=== PATIENT | female | born 1980 | race Caucasian/White ===

== ENCOUNTER → 2017-01-08 | Outpatient (CLI) | payer OTHER ==
--- NOTE | 2017-01-08 10:50 | RAD ---
EXAM: Chest, 2 views. HISTORY: Productive cough. COMPARISON: None. FINDINGS: Frontal and lateral views of the chest are obtained. There is no infiltrate, effusion or pneumothorax. The heart is normal in size. IMPRESSION: No acute pulmonary finding.
== END | disposition home or self-care (01) ==
LOC: DXRADRC 10:38
PROVIDERS: ATTEND Nurse Practitioner Family
DX: J11.1 Influenza due to unidentified influenza virus with other respiratory manifestations (principal); R05 Cough; R50.9 Fever, unspecified; R53.83 Other fatigue
CPT/HCPCS: 71020

== ENCOUNTER → 2017-03-08 | Outpatient (CLI) | payer OTHER ==
--- NOTE | 2017-03-08 14:14 | RAD ---
Right foot, 3 views, 03/08/2017: History: Foot pain No fracture or or dislocation is identified. No destructive bony lesion is seen. There is mild subcutaneous edema along the plantar aspect of the foot. IMPRESSION: No significant bony abnormality is detected.
== END | disposition home or self-care (01) ==
LOC: DXRADRC 09:18
PROVIDERS: ATTEND Family Medicine
DX: M79.671 Pain in right foot (principal); R60.0 Localized edema
CPT/HCPCS: 73630

== ENCOUNTER → 2020-02-02 | Outpatient (CLI) | payer OTHER ==
--- NOTE | 2020-02-02 11:05 | RAD ---
AP and lateral views of the right knee no comparison. INDICATION: Right knee pain. COMPARISON: 02/04/2013. FINDINGS: No fracture subluxation dislocation. No significant suprapatellar joint effusion is identified. There is only minimal degenerative change identified. Electronically signed by: Dima Griffith MD (02/02/2020 11:02 AM) [id number]
== END | disposition home or self-care (01) ==
LOC: PMG 10:48
PROVIDERS: ATTEND Registered Nurse
DX: M17.11 Unilateral primary osteoarthritis, right knee (principal)
CPT/HCPCS: 73560

== ENCOUNTER → 2021-03-07 | Outpatient (CLI) | payer OTHER ==
--- NOTE | 2021-03-07 12:00 | RAD ---
EXAM: Left knee, 3 views. HISTORY: Pain. COMPARISON: None. FINDINGS: 3 views of the left knee are obtained. There is mild tricuspid renal spurring and a small j oint effusion. There is no fracture, dislocation or subluxation. IMPRESSION: Mild tricompartmental osteoarthritis of the left knee with small joint effusion. Electronically signed by: Chanel Farrell MD (03/07/2021 11:58 AM) [id number]
== END ==
LOC: RAD 11:44
PROVIDERS: ATTEND Physician Assistant
DX: M17.12 Unilateral primary osteoarthritis, left knee (principal)
CPT/HCPCS: 73562

== ENCOUNTER 2021-03-14 16:31 | Emergency (ER) | payer OTHER ==
[~2021-03-14] VITALS: Ht 170.2 cm; Wt 139.5 kg
--- NOTE | 2021-03-14 18:23 | RAD ---
Exam performed: CT scan of the head without contrast. Date of Service: 03/14/2021. Comparison: None available. Clinical History: Left arm and neck pain. Technique: Helical acquisitions are obtained from the foramen magnum to the vertex without intravenou s administration of contrast. Findings: The ventricles are midline without evidence of dilatation. Normal garay-white differentiation is maint ained. There is no extra axial fluid collection, intraparenchymal hemorrhage or mass lesion. The vi sualized portions of the orbits, paranasal sinuses and the mastoid air cells appear clear. The scout rium is intact. Impression: 1. No acute intracranial process detected. PQRS Compliance Statement: One or more of the following individualized dose reduction techniques were utilized for this examinat ion: 1. Automated exposure control 2. Adjustment of the mA and/or kV according to patient size 3. Use of iterative reconstruction technique Electronically signed by: Allie Dorsey MD (03/14/2021 6:21 PM) [facility]
[2021-03-14 18:27] VITALS: BP 154/84
[2021-03-14] MEDS: IV NORMAL SALINE 1,000ML 1,000 ML IV ONE (18:28)
[2021-03-14] MEDS: KETOROLAC 15 MG/ML VIAL. IVP ONE (18:29)
[2021-03-14] MEDS: MECLIZINE 12.5 MG TABLET. PO ONE (18:29)
[2021-03-14] MEDS: ONDANSETRON PF 4 MG/2 ML VIAL. IVP ONE ×2 (18:29→19:44)
--- NOTE | 2021-03-14 18:38 | PHYS DOC ---
General Adult EDM: Chief Complaint: LOWER EXT PAIN HPI: HPI: [] Patient is a 41-year-old female presents with left leg, arm, bilateral neck pain. Patient was seen by her PCP last week and given a steroid injection in her leg for pain. Patient denies any relief. Patient states then she started having neck and arm pain. Patient is also reporting nausea/vomiting/diarrhea and dizziness. "I feel like the room is spinning". Patient was seen in urgent care prior to coming to the emergency room and diagnosed with vertigo. Patient also reports hypertension but does not take any medications and has been diagnosed with hypertension in the past. "I cannot take any blood pressure medication because of the side effects I get". "I have not found one that works yet for me". Patient's blood pressure was 160s on arrival. Patient is alert and oriented. Neurologically intact. No sensory changes or weakness noted. Patient denies chest pain, shortness of breath, headache. Denies fever. (AICHA BERTRAND APRN) Review of Systems: Review of Systems: Constitutional: Denies fever or chills Eyes: Denies change in visual acuity HENT: Denies nasal congestion or sore throat Respiratory: Denies cough or shortness of breath Cardiovascular: Denies chest pain or edema GI: Denies abdominal pain, nausea, vomiting, bloody stools or diarrhea : Denies dysuria Musculoskeletal: Reports left arm, neck, leg pain Integument: Denies rash Neurologic: Denies headache, focal weakness or sensory changes. Reports dizziness. Endocrine: Denies polyuria or polydipsia Lymphatic: Denies swollen glands Psychiatric: Denies depression or anxiety (AICHA BERTRAND APRN) Current Medications: Current Meds: Current Medications Medications (Trade) Dose Ordered Sig/Neo Start Time Stop Time Status Last Admin Dose Admin Ketorolac Tromethamine (Toradol 15mg Vial) 15 mg 1X ONCE 03/14/21 17:45 03/14/21 17:46 UNV 03/14/21 18:29 15 MG Meclizine HCl (Antivert) 25 mg 1X ONCE 03/14/21 17:45 03/14/21 17:46 UNV 03/14/21 18:29 25 MG Ondansetron HCl (Zofran) 4 mg 1X ONCE 03/14/21 17:45 03/14/21 17:46 UNV 03/14/21 18:29 4 MG Sodium Chloride 1,000 ml @ 1,000 mls/hr 1X ONCE 03/14/21 17:45 03/14/21 18:44 UNV 03/14/21 18:28 1,000 MLS/HR (AICHA BERTRAND APRN) Allergies: Allergies: Allergies Coded Allergies Type Severity Reaction Last Updated Verified pseudoephedrine Allergy Unknown 03/14/21 Yes shellfish derived Allergy Unknown 03/14/21 Yes (AICHA BERTRAND APRN) Physical Exam: PE: Constitutional: Well developed, well nourished, no acute distress, non-toxic appearance. [] HENT: Normocephalic, atraumatic, bilateral external ears normal, oropharynx moist, no oral exudates, nose normal. [] Eyes: PERRLA, EOMI, conjunctiva normal, no discharge. [] Neck: Normal range of motion, no tenderness, supple, no stridor. [] Cardiovascular:Heart rate regular rhythm, no murmur [] Lungs & Thorax: Bilateral breath sounds clear to auscultation [] Abdomen: Bowel sounds normal, soft, no tenderness, no masses, no pulsatile masses. [] Skin: Warm, dry, no erythema, no rash. [] Back: No tenderness, no CVA tenderness. [] Extremities: Left arm and leg tenderness, ROM intact, no edema. [] Neurologic: Alert and oriented X 3, normal motor function, normal sensory function, no focal deficits noted. [] Psychologic: Affect normal, judgement normal, mood normal. [] (AICHA BERTRAND APRN) Current Patient Data: Vital Signs: Vital Signs Date Time Temp Pulse Resp B/P (MAP) Pulse Ox O2 Delivery O2 Flow Rate FiO2 03/14/21 18:27 79 16 154/84 (107) 97 Room Air (AICHA BERTRAND APRN) EKG: EKG: [] (AICHA BERTRAND APRN) Radiology/Procedures: Radiology/Procedures: []Exam performed: CT scan of the head without contrast. Date of Service: 03/14/2021. Comparison: None available. Clinical History: Left arm and neck pain. Technique: Helical acquisitions are obtained from the foramen magnum to the vertex without intravenous administration of contrast. Findings: The ventricles are midline without evidence of dilatation. Normal garay-white differentiation is maintained. There is no extra axial fluid collection, intraparenchymal hemorrhage or mass lesion. The visualized portions of the orbits, paranasal sinuses and the mastoid air cells appear clear. The calvarium is intact. Impression: 1. No acute intracranial process detected. PQRS Compliance Statement: One or more of the following individualized dose reduction techniques were utilized for this examination: 1. Automated exposure control 2. Adjustment of the mA and/or kV according to patient size 3. Use of iterative reconstruction technique Electronically signed by: Allie Dorsey MD (03/14/2021 6:21 PM) [facility] (AICHA BERTRAND APRN) Heart Score: C/O Chest Pain: No Risk Factors: Risk Factors: DM, Current or recent (<one month) smoker, HTN, HLP, family history of CAD, obesity. Risk Scores: Score 0 - 3: 2.5% MACE over next 6 weeks - Discharge Home Score 4 - 6: 20.3% MACE over next 6 weeks - Admit for Clinical Observation Score 7 - 10: 72.7% MACE over next 6 weeks - Early Invasive Strategies (AICHA BERTRAND APRN) Course & Med Decision Making: Course & Med Decision Making Pertinent Labs and Imaging studies reviewed. (See chart for details) [] 41-year-old female presents with left leg, arm, bilateral neck pain. Patient is also reporting nausea/vomiting/diarrhea and dizziness. "I feel like the room is spinning". Patient was seen in urgent care prior to coming to the emergency room and diagnosed with vertigo. Patient also reports hypertension and has a history of. "I cannot take any blood pressure medication because of the side effects I get". "I have not found one that works yet for me". Patient's blood pressure was 160s on arrival. Weakness, sensory changes, denies chest pain, shortness of breath, headache, recent illness. Patient given Toradol, Zofran, meclizine. Patient still reporting pain but states that dizziness is improved. Morphine and Zofran ordered. CT of head ordered to rule out any acute abnormalities due to dizziness. CT of head was negative. All labs unremarkable. UA negative for infection. Patient most likely is suffering from vertigo. Patient sent home with prescription for meclizine, Zofran. Patient directed to follow-up with her PCP for further evaluation. Patient can take ibuprofen and Tylenol at home for discomfort. Patient given strict return precautions if symptoms increase or worsen. Patient is appreciative and okay with discharge plan. (AICHA BERTRAND APRN) Catrachita Disclaimer: Catrachita Disclaimer: This electronic medical record was generated, in whole or in part, using a voice recognition dictation system. (AICHA BERTRAND APRN) Departure Departure: Impression: Primary Impression: Vertigo Disposition: HOME / SELF CARE / HOMELESS Condition: STABLE Referrals: RICH RENAE (PCP) Patient Instructions: Vertigo Additional Instructions: You were seen in the emergency room for dizziness, nausea. Your all of your lab work was unremarkable. Your urine was negative for infection. Your CT of your head was negative for any acute abnormalities. You can take ibuprofen and Tylenol at home for discomfort in your leg. Please follow-up with your PCP for further management of your blood pressure and pain. I am sending you home with a prescription for nausea medication and also for meclizine to help with dizziness. Please return to the emergency room with worsening symptoms or concerns. EMERGENCY DEPARTMENT GENERAL DISCHARGE INSTRUCTIONS Thank you for coming to [facility] (ED) today and trusting us with you care. We trust that you had a positivie experience in our Emergency Department. If you wish to speak to the department management, you may call the director at [phone]. YOUR FOLLOW UP INSTRUCTIONS ARE FOLLOWS: 1. Do you have a private Doctor? If you do not have a private doctor, please ask for a resource list of physicians or clinics that may be able to assist you with follow up care. 2. The Emergency Physician has interpreted your x-rays. The X-Ray specialist will also review them. If there is a change in the findings, you will be notified in 48 hours when at all possible. 3. A lab test or culture has been done, your results will be reviewed and you will be notified if you need a change in treatment. ADDITIONAL INSTRUCTIONS AND INFORMATION: 1. Your care today has been supervised by a physician who is specially trained in emergency care. Many problems require more than one evaluation for a complete diagnosis and treatment. We recommend that you schedule your follow up appointment as recommended to ensure complete treatment of you illness or injury. If you are unable to obtain follow up care and continue to have a problem, or if your condition worsens, we recommend that you return to the ED. 2. We are not able to safely determine your condition over the phone nor are we able to give sound medical advice over the phone. For these safety reasons, if you call for medical advice we will ask you to come to the ED for further evaluation. 3. If you have any questions regarding these discharge instructions please call the ED at [phone]. SAFETY INFORMATION: In the interest of safety, wellness, and injury prevention; we encourage you to wear your sealbelt, if you smoke; quite smoking, and we encourage family to use a protective helmet for bicycling and other sporting events that present an increased risk for head injury. IF YOUR SYMPTOMS WORSEN OR NEW SYMPTOMS DEVELOP, OR YOU HAVE CONCERNS ABOUT YOUR CONDITION; OR IF YOUR CONDITION WORSENS WHILE YOU ARE WAITING FOR YOUR FOLLOW UP AP POINTMENT; EITHER CONTACT YOUR PRIMARY CARE DOCTOR, THE PHYSICIAN WHOSE NAME AND NUMBER YOU WERE GIVEN, OR RETURN TO THE ED IMMEDIATELY. Scripts Ondansetron Hcl (ZOFRAN) 4 Mg Tablet 4 MG PO TID PRN PRN for NAUSEA, #9 TAB Prov: AICHA BERTRAND APRN 03/14/21 Meclizine Hcl (MECLIZINE HCL) 25 Mg Tablet 1 TAB PO PRN TID for vertigo for 7 Days, #21 TAB Prov: AICHA BERTRAND APRN 03/14/21 Attending Signature Attending Signature I have participated in the care of this patient and I have reviewed and agree with all pertinent clinical information above including history, exam, and recommendations. (ANDRIA TADEO MD) AICHA BERTRAND APRN March 14, 2021 18:38 ANDRIA TADEO MD Mar 15, 2021 20:29
[2021-03-14 18:54] LABS: BASO % 0 % (0-3); EOS # 0.1 x10^3/uL (0.0-0.7); EOS % 2 % (0-3); HEMATOCRIT 36.2 % (36.0-47.0); HEMOGLOBIN 12.2 g/dL (12.0-15.5); LYMPH # 2.9 x10^3/uL (1.0-4.8); LYMPH % 33 % (24-48); MEAN CORPUSCULAR HEMOGLOBIN 29 pg (25-35); MEAN CORPUSCULAR HGB CONC 34 g/dL (31-37); MEAN CORPUSCULAR VOLUME 85 fL (79-100); MONO # 0.5 x10^3/uL (0.0-1.1); MONO % 6 % (0-9); NEUT # 5.2 x10^3uL (1.8-7.7); NEUT % 59 % (31-73); PLATELET COUNT 283 x10^3/uL (140-400); RED BLOOD COUNT 4.24 x10^6/uL (3.50-5.40); WHITE BLOOD COUNT 8.9 x10^3/uL (4.0-11.0)
--- NOTE | 2021-03-14 19:00 | EKG ---
[address] [address] Test Date: 2021-03-14 Test Time: 18:03:59 Pat Name: SHAYY PERALTA Department: Room: Gender: F Software Intern: NOHEMI : 1980 Requested By: AICHA BERTRAND Order Number: [id number] Reading MD: Segundo Lewis Measurements Intervals [place] Rate: 81 P: 27 [place]: 152 QRS: 6 QRSD: 78 T: 12 QT: 356 QTc: 414 Interpretive Statements SINUS RHYTHM MISSING LEAD Electronically Signed On 03-15-2021 14:57:40 CDT by Segundo Lewis
[2021-03-14 19:01] LABS: CALCIUM 8.7 mg/dL (8.5-10.1); CREATININE 0.8 mg/dL (0.6-1.0); GFR 78.3; POTASSIUM 4.2 mmol/L (3.5-5.1)
[2021-03-14 19:42] LABS: BARBITURATES NEG (NEG); BENZODIAZEPINES NEG (NEG); BILIRUBIN,URINE NEG (NEG); CANNABINOIDS NEG (NEG); CLARITY,URINE CLEAR; COCAINE NEG (NEG); COLOR,URINE YELLOW; GLUCOSE,URINE NEG (NEG); METHADONE NEG (NEG); NITRITE,URINE NEG (NEG); OPIATES NEG (NEG); PHENCYCLIDINE NEG (NEG); UROBILINOGEN,URINE 0.2 mg/dL (0.2 mg/dL)
[2021-03-14 19:43] LABS: BACTERIA,URINE 0 /HPF (0-FEW); RBC,URINE 0 /HPF (0-2); SQUAMOUS EPITHELIAL CELL,UR FEW /LPF; WBC,URINE 0 /HPF (0-4)
[2021-03-14] MEDS: MORPHINE SULFATE 4 MG/ML DISP.SYRIN. IV ONE (19:43)
[2021-03-14 19:45] LABS: AMPHETAMINE/METHAMPHETAMINE NEG (NEG)
[2021-03-14] MEDS ORDERED: ONDA4TAB7 PO (20:03)
[2021-03-14] MEDS ORDERED: MECL-75 PO (20:03)
== END 2021-03-14 20:25 | disposition home or self-care (01) ==
LOC: ER 16:31
DX: R42 Dizziness and giddiness (principal); M79.605 Pain in left leg; M79.602 Pain in left arm; M54.2 Cervicalgia; Z88.8 Allergy status to other drugs, medicaments and biological substances; Z91.013 Allergy to seafood
CPT/HCPCS: 36415; 70450; 80048; 80307; 81001; 85025; 93005; 96361; 96374; 96375; 96376; 99285; J1885; J2270; J2405; J7030

== ENCOUNTER 2021-04-25 10:40 | Emergency (ER) | payer OTHER ==
[~2021-04-25] VITALS: Ht 170.2 cm; Wt 138.3 kg
[~2021-04-25 10:40] MED LIST: MECL-75 PO; ONDA4TAB7 PO
--- NOTE | 2021-04-25 11:43 | RAD ---
EXAM: Left lower extremity venous Doppler sonogram. HISTORY: Pain and swelling. TECHNIQUE: Pedraza scale and color Doppler sonographic evaluation of the left lower extremity veins with spectral waveform analysis was performed. FINDINGS: There is normal color flow, normal compressibility and there are normal spectral waveforms in the common femoral, superficial femoral, popliteal, posterior tibial and greater saphenous veins. IMPRESSION: No Doppler evidence of lower extremity deep venous thrombosis. Electronically signed by: Chanel Farrell MD (04/25/2021 11:41 AM) [id number]
--- NOTE | 2021-04-25 11:45 | RAD ---
EXAM: Left knee, 4 views. HISTORY: Pain and swelling. COMPARISON: None. FINDINGS: 4 views of the left knee are obtained. There is mild medial compartment predominant tricomp artmental spurring. There is trace joint fluid without a significant joint effusion. There is no frac ture, dislocation or subluxation. There is a corticated ossicle along the lateral patella. IMPRESSION: 1. Mild medial compartment predominant tricompartmental osteoarthritis of the left knee. 2. No acute osseous finding. Electronically signed by: Chanel Farrell MD (04/25/2021 11:42 AM) [id number]
--- NOTE | 2021-04-25 11:53 | PHYS DOC ---
Past History Past Medical History: Hypertension Past Surgical History: Tonsillectomy, Tubal ligation, Other Additional Past Surgical Histo: adnoidectomy Alcohol Use: Occasionally Adult General Chief Complaint Chief Complaint: KNEE INJURY [facility] HPI Patient is a 41-year-old female presents to the emergency room complaining of left knee pain for several months. Patient states pain is worse with any kind of movement or walking. She seen her primary care physician about it who has tried several things including steroids and anti-inflammatories which have not worked. Patient has not seen orthopedic surgeon. She states that while she was at work today she stepped on it and suddenly felt this pop and had severe pain. She states that she has not been able to walk on it since that time. She denies any other trauma. She is concerned about a possible blood clot. Review of Systems Review of Systems Complete ROS is negative unless otherwise documented in [facility] Allergies Allergies Allergies Coded Allergies Type Severity Reaction Last Updated Verified pseudoephedrine Allergy Unknown 03/14/21 Yes shellfish derived Allergy Unknown 03/14/21 Yes Physical Exam Physical Exam General: Awake, alert, NAD. Well Nourished, well hydrated. Cooperative HEENT: Atraumatic, EOMI, PERRL, airway patent, moist oral mucosa Neck: Supple, trachea midline Respiratory: CTA bilaterally, normal effort, no wheezing/crackles CV: RRR, no murmur, cap refill <2 GI: Soft, nondistended, nontender, no masses MSK: Left knee: Minimal erythema to the anterior knee, diffuse tenderness to the anterior knee, no swelling, no effusion, full range of motion Skin: Warm, dry, intact Neuro: A&O x3, speech NL, sensory and motor grossly intact, no focal deficits Psych: Normal affect, normal mood, not suicidal or homicidal Current Patient Data Vital Signs Vital Signs Date Time Temp Pulse Resp B/P (MAP) Pulse Ox O2 Delivery O2 Flow Rate FiO2 04/25/21 10:50 98.1 83 20 147/83 99 Room Air EKG EKG [] Radiology/Procedures Radiology/Procedures [] Heart Score C/O Chest Pain: N/A Risk Factors: Risk Factors: DM, Current or recent (<one month) smoker, HTN, HLP, family history of CAD, obesity. Risk Scores: Risk Factors: DM, Current or recent (<one month) smoker, HTN, HLP, family history of CAD, obesity. Course & Med Decision Making Course & Med Decision Making Pertinent Labs and Imaging studies reviewed. (See chart for details) Patient is a 41-year-old female presents to the emergency room complaining of left knee pain. X-ray was done and does not show any effusion or fracture. She does appear to have osteoarthritis. Ultrasound was done and patient does not have a DVT at this time. Patient will be placed in a knee brace and will be referred to orthopedic surgery. Patient's test results and vitals while in the ED were fully reviewed and discussed with the patient. Patient is stable and at this time does not need admission to the hospital. We have discussed strict return precautions and the importance of following up with their Primary Care Physician. Patient stated understanding and was given an opportunity to ask any questions. Patient is in agreement with plan. Dragon Disclaimer Dragon Disclaimer This electronic medical record was generated, in whole or in part, using a voice recognition dictation system. Departure Departure: Impression: Primary Impression: Knee pain, left Disposition: HOME / SELF CARE / HOMELESS Condition: STABLE Referrals: RICH RENAE (PCP) Patient Instructions: Knee Immobilizer-Brief, Knee Pain Additional Instructions: [facility] SANTANA HAMMOND MD Apr 25, 2021 11:53
[2021-04-25 12:05] VITALS: BP 141/76
== END 2021-04-25 12:06 | disposition home or self-care (01) ==
LOC: ER 10:40
DX: M25.562 Pain in left knee (principal); I10 Essential (primary) hypertension; Z88.8 Allergy status to other drugs, medicaments and biological substances; Z91.013 Allergy to seafood
CPT/HCPCS: 73564; 93971; 99284

== ENCOUNTER 2021-10-08 15:16 | Emergency (ER) | payer OTHER ==
[~2021-10-08] VITALS: Ht 170.2 cm; Wt 135.6 kg
[2021-10-08 15:16] VITALS: BP 149/90
--- NOTE | 2021-10-08 15:45 | PHYS DOC ---
Past History Past Medical History: Diabetes, Hypertension Past Surgical History: Tonsillectomy, Tubal ligation, Other Additional Past Surgical Histo: adnoidectomy Alcohol Use: Occasionally Adult General Chief Complaint Chief Complaint: MULTIPLE COMPLAINTS [facility] HPI Patient is a 41-year-old female presenting for URI symptoms. Reports she has had generalized URI symptoms for the past week but worsened yesterday. States she had nasal congestion and pressure that later developed into nasal drainage, postnasal drip, dry nonproductive cough and chest pain with deep inspiration. Nothing known makes better or worse. She has been utilizing lrqr-czu-cnoinhy medication such as Mucinex and antihistamines without significant relief prompting her to come in for evaluation. Admits she is a noninsulin-dependent type II diabetic and has high blood pressure for which she takes medications for, no other known medical issues or medical conditions. Denies tobacco alcohol or drug use. Has positive family history for early cardiac disease but she personally has no history of cardiac abnormalities. She is unvaccinated against COVID-19. Specifically denies any fever, meningeal signs or nuchal rigidity, known or obvious sick contact, ripping or tearing sensation in torso, productive cough, pain radiating to back, abdominal pain, dysuria or changes in motor or sensory or neuro function. 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 See HPI for pertinent positives and negative responses, other blue all other systems are negative, non-pertinent or non-contributory Allergies Allergies Allergies Coded Allergies Type Severity Reaction Last Updated Verified pseudoephedrine Allergy Unknown 03/14/21 Yes shellfish derived Allergy Unknown 03/14/21 Yes Physical Exam Physical Exam General: Appears well, non toxic, and comfortable Skin: Warm, dry. Normal for ethnicity. HEENT: Atraumatic. PERRLA. Rhinorrhea and congestion. Nasal turbinates boggy b/l. Moist mucous membranes. Bilateral tympanic membranes unremarkable. Uvula midline. Maintaining secretions. No phonation changes. Neck: Trachea midline. Normal ROM. No stridor. Respiratory: Normal WOB. CTAB w/o w/r/r. No tachypnea. Cardiovascular: Regular rate and rhythm. Normal peripheral perfusion. Abdomen: Soft. Non tender. No distension. Back: Normal ROM. Musculoskeletal: No swelling or deformity. Neuro: Alert and oriented x 4. MAEE. Lymph: No cervical LAD. Psych: Normal affect and mood. Current Patient Data Vital Signs Vital Signs Date Time Temp Pulse Resp B/P (MAP) Pulse Ox O2 Delivery O2 Flow Rate FiO2 10/08/21 15:16 98.6 95 149/90 (109) 97 Room Air 10/08/21 15:16 20 Lab Results Laboratory Tests Test 10/08/21 15:39 10/08/21 16:00 White Blood Count 8.6 x10^3/uL Red Blood Count 4.41 x10^6/uL Hemoglobin 12.8 g/dL Hematocrit 37.7 % Mean Corpuscular Volume 86 fL Mean Corpuscular Hemoglobin 29 pg Mean Corpuscular Hemoglobin Concent 34 g/dL Red Cell Distribution Width 12.3 % Platelet Count 315 x10^3/uL Neutrophils (%) (Auto) 63 % Lymphocytes (%) (Auto) 28 % Monocytes (%) (Auto) 7 % Eosinophils (%) (Auto) 1 % Basophils (%) (Auto) 1 % Neutrophils # (Auto) 5.4 x10^3uL Lymphocytes # (Auto) 2.4 x10^3/uL Monocytes # (Auto) 0.6 x10^3/uL Eosinophils # (Auto) 0.1 x10^3/uL Basophils # (Auto) 0.0 x10^3/uL Sodium Level 141 mmol/L Potassium Level 3.9 mmol/L Chloride Level 106 mmol/L Carbon Dioxide Level 28 mmol/L Anion Gap 7 Blood Urea Nitrogen 9 mg/dL Creatinine 0.8 mg/dL Estimated GFR (Cockcroft-Gault) 78.3 BUN/Creatinine Ratio 11 Glucose Level 160 mg/dL Calcium Level 8.4 mg/dL Total Bilirubin 0.3 mg/dL Aspartate Amino Transf (AST/SGOT) 16 U/L Alanine Aminotransferase (ALT/SGPT) 27 U/L Alkaline Phosphatase 45 U/L Troponin I High Sensitivity 5 ng/L Total Protein 6.6 g/dL Albumin 3.5 g/dL Albumin/Globulin Ratio 1.1 Influenza Type A (Rapid) Negative Influenza Type B (Rapid) Negative SARS-CoV-2 Antigen (Rapid) Negative Current Medications Medications (Trade) Dose Ordered Sig/Neo Route PRN Reason Start Time Stop Time Status Last Admin Dose Admin Ketorolac Tromethamine (Toradol 15mg Vial) 15 mg 1X ONCE IVP 10/08/21 16:30 10/08/21 16:31 DC Acetaminophen (Tylenol) 650 mg 1X ONCE PO 10/08/21 16:30 10/08/21 16:31 DC EKG EKG EKG ordered and interpreted by myself at 1535 hrs. as sinus rhythm at 93 bpm, unremarkable intervals, no axis deviation, no obvious ischemic findings, no STEMI Radiology/Procedures Radiology/Procedures XR CHEST 1V History: Shortness of breath. Comparison: 01/08/2017. Technique: AP radiograph of the chest. Findings: The lungs are adequately and symmetrically inflated. No airspace consolidation, pleural effusion or pneumothorax. The cardiomediastinal silhouette and pulmonary vasculature are within normal limits. No acute osseous abnormality. Soft tissues are unremarkable. Impression: 1. No acute cardiopulmonary process. Electronically signed by: Bravo Ruiz MD (10/08/2021 4:03 PM) [facility] Heart Score C/O Chest Pain: Yes HEART Score for Chest Pain: HEART Score for Chest Pain Response (Comments) Value History Slighlty/Non-Suspicious 0 ECG Normal 0 Age < 45 0 Risk Factors 1 or 2 Risk Factors 1 Troponin < Normal Limit 0 Total 1 Risk Factors: Risk Factors: DM, Current or recent (<one month) smoker, HTN, HLP, family history of CAD, obesity. Risk Scores: Risk Factors: DM, Current or recent (<one month) smoker, HTN, HLP, family history of CAD, obesity. Course & Med Decision Making Course & Med Decision Making ABCs unremarkable HPI physical exam and comprehensive ER work-up nonconcerning for any emergent or surgical issues Disclosed most likely diagnosis of viral syndrome, Covid PCR pending in an unvaccinated individual Discussed little indication for further intervention and/or need for hospitalization at present, subsequent discharge planning home with continued supportive care, self quarantine instructions and close outpatient follow-up recommended [place] Disclaimer Dragon Disclaimer This electronic medical record was generated, in whole or in part, using a voice recognition dictation system. PERC Rule for PE PERC Rule for PE Response (Comments) Value Age > 50: No 0 HR > 100: No 0 Sa02 on room air <95%: No 0 Unilateral leg swelling: No 0 Hemoptysis: No 0 Recent surgery or trauma: No 0 Prior PE or DVT: No 0 Hormone use: No 0 Total 0 Departure Departure: Impression: Primary Impression: Viral syndrome Additional Impression: COVID-19 Disposition: HOME / SELF CARE / HOMELESS Condition: STABLE Referrals: RICH RENAE (PCP) Patient Instructions: Viral Syndrome Additional Instructions: You were seen for upper respiratory symptoms such as nasal congestion, rhinorrhea, cough, and possible infection with COVID-19. Your physical exam was reassuring. Your chest x-ray and comprehensive ER work-up was normal. We teste d you for COVID-19 but this test does not come back for 1 to 2 days. In the meantime you need to quarantine yourself at home away from all other individuals, especially those who are elderly or have any other chronic health issues or an immunocompromised status. You should return to the ED if you develop worsening cough, shortness of breath, chest pain, or any other new or concerning symptoms. Alternate Tylenol and ibuprofen as needed for body aches and pain. If your test does come back positive you need to quarantine yourself for 10 days until symptom-free. You should make sure to drink plenty of fluids and get plenty of rest. Problem Qualifiers CHAYO FUNK DO Oct 08, 2021 15:45
[2021-10-08 16:03] LABS: BASO % 1 % (0-3); EOS # 0.1 x10^3/uL (0.0-0.7); EOS % 1 % (0-3); HEMATOCRIT 37.7 % (36.0-47.0); HEMOGLOBIN 12.8 g/dL (12.0-15.5); LYMPH # 2.4 x10^3/uL (1.0-4.8); LYMPH % 28 % (24-48); MEAN CORPUSCULAR HEMOGLOBIN 29 pg (25-35); MEAN CORPUSCULAR HGB CONC 34 g/dL (31-37); MEAN CORPUSCULAR VOLUME 86 fL (79-100); MONO # 0.6 x10^3/uL (0.0-1.1); MONO % 7 % (0-9); NEUT # 5.4 x10^3uL (1.8-7.7); NEUT % 63 % (31-73); PLATELET COUNT 315 x10^3/uL (140-400); RED BLOOD COUNT 4.41 x10^6/uL (3.50-5.40); RED CELL DISTRIBUTION WIDTH 12.3 % (11.5-14.5); WHITE BLOOD COUNT 8.6 x10^3/uL (4.0-11.0)
--- NOTE | 2021-10-08 16:06 | RAD ---
XR CHEST 1V History: Shortness of breath. Comparison: 01/08/2017. Technique: AP radiograph of the chest. Findings: The lungs are adequately and symmetrically inflated. No airspace consolidation, pleural effusion or p neumothorax. The cardiomediastinal silhouette and pulmonary vasculature are within normal limits. No acute osseous abnormality. Soft tissues are unremarkable. Impression: 1. No acute cardiopulmonary process. Electronically signed by: Bravo Ruiz MD (10/08/2021 4:03 PM) [facility] [place]
[2021-10-08 16:11] LABS: CALCIUM 8.4 mg/dL (8.5-10.1); CREATININE 0.8 mg/dL (0.6-1.0); GFR 78.3; POTASSIUM 3.9 mmol/L (3.5-5.1)
[2021-10-08 16:17] LABS: ALBUMIN 3.5 g/dL (3.4-5.0); ALBUMIN/GLOBULIN RATIO 1.1 (1.0-1.7); TOTAL BILIRUBIN 0.3 mg/dL (0.2-1.0); TOTAL PROTEIN 6.6 g/dL (6.4-8.2)
[2021-10-08] MEDS ORDERED: ACETAMINOPHEN 325 MG TABLET PO ONE (16:30)
[2021-10-08] MEDS ORDERED: KETOROLAC 15 MG/ML VIAL. IVP ONE (16:30)
[2021-10-08 16:34] LABS: INFLUENZA A PATIENT NEGATIVE (NEGATIVE); INFLUENZA B PATIENT NEGATIVE (NEGATIVE)
== END 2021-10-08 16:56 | disposition home or self-care (01) ==
LOC: ER 15:16
DX: U07.1 COVID-19 (principal); B34.9 Viral infection, unspecified; E11.9 Type 2 diabetes mellitus without complications; I10 Essential (primary) hypertension; Z91.013 Allergy to seafood; Z88.8 Allergy status to other drugs, medicaments and biological substances
CPT/HCPCS: 71045; 80053; 84484; 85025; 87426; 87804; 96374; 99284; C9803; J1885; U0003